=== PATIENT | male | born 1950 | race African-American/Black ===

== ENCOUNTER 2018-11-21 19:29 | Inpatient (IN) ==
[2018-11-21 22:31] LABS: Basophils % 0.1 % (0.0-0.8); Eosinophils # 0.1 10*3/uL (0.0-0.87); Eosinophils % 1.3 % (0.00-10.9); Immature Granulocytes % 0.5 %; Immature Granulocytes Absolute 0.04 #; Lymphocytes % 27.4 % (21.2-54.2); Mean Corpuscular HGB Conc 29.3 GM/DL (32-36); Mean Corpuscular Volume 75.9 FL (87-102); Mean Platelet Volume 10.6 FL (9.6-12.0); Monocytes % 6.7 % (1.7-12.7); Platelet Count 273 T/CUMM (130-400); Red Cell Distribution Width 17.1 % (9.3-17.3); White Blood Count 7.5 T/CUMM (4-12)
[2018-11-21 22:33] LABS: Hematocrit 16.7 VOL% (42.0-52.0); Hemoglobin 4.9 GM/DL (14.0-18.0)
[2018-11-21 22:37] LABS: PT Patient Result 10.6 SECS (9.6-12.2)
[2018-11-21 22:51] LABS: Alanine Aminotransferase 15 U/L (16-61); Alkaline Phosphatase 70 U/L (45-117); Aspartate Amino Transferase 9 U/L (0-37); Bilirubin,Total < 0.39 MG/DL (0.2-1.0); Blood Urea Nitrogen 25 MG/DL (7-18); Calcium 8.4 MG/DL (8.5-10.1); Estimated Glom Filtration Rate 79 ML/MIN; Glucose 308 MG/DL (74-106); Osmolality,Calculated 296.3 MOS/KG (273-304); Total Protein 6.7 G/DL (6.4-8.3)
[2018-11-21] MEDS ORDERED: hydrALAZINE 20 MG/1 ML VIAL IV STA (23:01)
[2018-11-21] MEDS ORDERED: PANTOPRAZOLE INJ 80 MG in SODIUM CHLORIDE 0.9% 100 ML IV ONE (23:01)
[2018-11-21] MEDS ORDERED: ACETAMINOPHEN 325 MG TABLET PO PRN (23:11)
[2018-11-21] MEDS ORDERED: BISACODYL 5 MG TABLET PO PRN (23:11)
[2018-11-21] MEDS ORDERED: guaiFENesin/DM ER 600-30 MG TABLET PO PRN (23:11)
[2018-11-21] MEDS ORDERED: NICOTINE 21 MG/24 HR PATCH TRANSDERM PRN (23:11)
[2018-11-21] MEDS ORDERED: ONDANSETRON 4 MG/2 ML VIAL IV PRN (23:11)
[2018-11-21] MEDS ORDERED: MORPHINE 4 MG/1 ML VIAL IV PRN (23:11)
[2018-11-21] MEDS ORDERED: diphenhydrAMINE CAP 25 MG CAPSULE PO PRN (23:11)
[2018-11-21] MEDS ORDERED: traZODone 50 MG TABLET PO PRN (23:11)
[2018-11-21] MEDS ORDERED: SODIUM CHLORIDE 0.9% 1,000 ML IV PRN (23:11)
[2018-11-21 23:40] LABS: Risk Ratio 4.52; Thyroid Stimulating Hormone 2.71 uIU/ml (0.358-3.74); VLDL CHOLESTEROL 29.6 MG/DL
[2018-11-21 23:43] LABS: % Iron Saturation 3.1 % (18-50); Ferritin 4.8 ng/ml (26-388)
[2018-11-21 23:47] LABS: Folate 15.4 NG/ML (5.4-24.0)
[2018-11-21] MEDS: SODIUM CHLORIDE 0.9% 1,000 ML IV SCH (23:47)
[2018-11-22] MEDS ORDERED: PNEUMOCOCCAL VACCINE (13 VALENT) 0.5 ML SYRINGE IM ONE (00:12)
[2018-11-22] MEDS ORDERED: GLUCAGON 1 MG VIAL IM PRN ×2 (00:27→13:25)
[2018-11-22] MEDS ORDERED: DEXTROSE 50% 25 GM/50 ML VIAL IV PRN (00:27)
[2018-11-22] MEDS: PANTOPRAZOLE INJ 200 MG in SODIUM CHLORIDE 0.9% 250 ML IV SCH (01:41)
[2018-11-22 04:36] LABS: Apearance,Urine Slightly Hazy (Clear); Bacteria,Urine Occasional /HPF (Few); Bilirubin,Urine Negative (Negative); Blood, Urine Negative (Negative); Glucose,Urine (UA) >=500 mg/dL (Negative); Hyaline Casts,Urine 1 /LPF (0-3); Ketones,Urine Negative (Negative); Mucus,Urine Few /LPF (Occasional); Nitrite,Urine Negative (Negative); Protein,Urine Negative; RBC,Urine <1 /HPF (0-4); Squamous Epithelial Cell,Urine Occasional /HPF (0-10); Urine Color Yellow (Yellow); Urine Specific Gravity 1.022 (1.001-1.035); Urine Urobilinogen < 2.0 EU/DL (0.2-1.0); WBC,Urine 10 /HPF (0-6)
[2018-11-22] MEDS ORDERED: hydrALAZINE 20 MG/1 ML VIAL IV ONE (05:16)
[2018-11-22 09:05] LABS: Basophils % 0.2 % (0.0-0.8); Eosinophils # 0.2 10*3/uL (0.0-0.87); Eosinophils % 2.4 % (0.00-10.9); Hematocrit 19.7 VOL% (42.0-52.0); Immature Granulocytes % 0.5 %; Immature Granulocytes Absolute 0.04 #; Lymphocytes # 3.1 10*3/uL (1.4-4.0); Lymphocytes % 36.3 % (21.2-54.2); Mean Corpuscular HGB Conc 31.5 GM/DL (32-36); Mean Corpuscular Volume 77.9 FL (87-102); Mean Platelet Volume 10.7 FL (9.6-12.0); Monocytes % 7.7 % (1.7-12.7); Neutrophils % 52.9 % (38.7-73.9); Platelet Count 239 T/CUMM (130-400); Red Blood Count 2.53 MC/CUMM (3.8-5.5); Red Cell Distribution Width 17.9 % (9.3-17.3); White Blood Count 8.4 T/CUMM (4-12)
[2018-11-22 09:07] LABS: Hemoglobin 6.2 GM/DL (14.0-18.0)
[2018-11-22 09:35] LABS: Albumin 2.8 G/DL (3.4-5.0); Bilirubin,Total 0.5 MG/DL (0.2-1.0); Calcium 7.8 MG/DL (8.5-10.1); Osmolality,Calculated 286.1 MOS/KG (273-304)
[2018-11-22] MEDS ORDERED: FUROSEMIDE 20 MG/2 ML VIAL IV ONE (10:14)
[2018-11-22] MEDS ORDERED: SODIUM CHLORIDE 0.9% 1,000 ML IV PRN (10:15)
[2018-11-22] MEDS ORDERED: ALBUTEROL/IPRATROPIUM 3 ML NEB RESP TX PRN (10:27)
[2018-11-22] MEDS ORDERED: DEXTROSE 10% 250 ML BAG IV PRN (13:25)
[2018-11-22 14:01] LABS: Hematocrit 24.4 VOL% (42.0-52.0)
[2018-11-22 14:06] LABS: Hemoglobin 7.7 GM/DL (14.0-18.0)
[2018-11-22] MEDS: SODIUM CHLORIDE 0.9% 1,000 ML IV SCH (15:34)
[2018-11-22] MEDS: hydrALAZINE 25 MG TABLET PO SCH ×2 (16:36→20:15)
[2018-11-22] MEDS: INSULIN LISPRO 100 UNIT/ML SUBCUT SCH ×2 (16:45→20:49)
[2018-11-22] MEDS ORDERED: hydrALAZINE 20 MG/1 ML VIAL IV PRN (23:31)
[2018-11-22] MEDS ORDERED: cloNIDine 0.1 MG TABLET PO ONE (23:31)
[2018-11-23] MEDS: PANTOPRAZOLE INJ 200 MG in SODIUM CHLORIDE 0.9% 250 ML IV SCH (01:07)
[2018-11-23] MEDS: SODIUM CHLORIDE 0.9% 1,000 ML IV SCH ×2 (04:57→21:20)
[2018-11-23] MEDS: INSULIN LISPRO 100 UNIT/ML SUBCUT SCH ×5 (07:29→21:20)
[2018-11-23 08:43] LABS: Basophils % 0.2 % (0.0-0.8); Eosinophils # 0.2 10*3/uL (0.0-0.87); Eosinophils % 4.2 % (0.00-10.9); Hematocrit 19.3 VOL% (42.0-52.0); Immature Granulocytes % 0.4 %; Immature Granulocytes Absolute 0.02 #; Lymphocytes # 2.3 10*3/uL (1.4-4.0); Lymphocytes % 43.6 % (21.2-54.2); Mean Corpuscular HGB Conc 31.1 GM/DL (32-36); Mean Corpuscular Volume 79.8 FL (87-102); Mean Platelet Volume 10.4 FL (9.6-12.0); Monocytes % 7.5 % (1.7-12.7); Neutrophils % 44.1 % (38.7-73.9); Platelet Count 203 T/CUMM (130-400); Red Blood Count 2.42 MC/CUMM (3.8-5.5); Red Cell Distribution Width 17.5 % (9.3-17.3); White Blood Count 5.3 T/CUMM (4-12)
[2018-11-23] MEDS: ATORVASTATIN 80 MG TABLET PO SCH (08:46)
[2018-11-23] MEDS: PANTOPRAZOLE 40 MG VIAL IV SCH ×2 (08:46→20:37)
[2018-11-23] MEDS: hydrALAZINE 25 MG TABLET PO SCH ×4 (08:46→20:35)
[2018-11-23] MEDS ORDERED: SODIUM CHLORIDE 0.9% 1,000 ML IV PRN ×2 (09:05→16:17)
[2018-11-23 09:18] LABS: Albumin 2.3 G/DL (3.4-5.0); Bilirubin,Total 0.4 MG/DL (0.2-1.0); Calcium 7.1 MG/DL (8.5-10.1); Osmolality,Calculated 288.6 MOS/KG (273-304); Total Protein 5.2 G/DL (6.4-8.3)
[2018-11-23] MEDS: POTASSIUM CHLORIDE 20 MEQ TABLET PO PRN ×3 (09:51→14:18)
[2018-11-23] MEDS ORDERED: CALCIUM GLUCONATE 1,000 MG in SODIUM CHLORIDE 0.9% 100 ML IV ONE (13:00)
[2018-11-23 20:28] LABS: Hematocrit 29.4 VOL% (42.0-52.0)
[2018-11-23 20:30] LABS: Hemoglobin 9.4 GM/DL (14.0-18.0)
[2018-11-24] MEDS: PANTOPRAZOLE INJ 200 MG in SODIUM CHLORIDE 0.9% 250 ML IV SCH (01:44)
[2018-11-24 05:45] LABS: Albumin 2.8 G/DL (3.4-5.0); Total Protein 6.3 G/DL (6.4-8.3)
[2018-11-24 05:48] LABS: Basophils % 0.3 % (0.0-0.8); Eosinophils # 0.3 10*3/uL (0.0-0.87); Eosinophils % 4.9 % (0.00-10.9); Hemoglobin 9.6 GM/DL (14.0-18.0); Immature Granulocytes % 0.3 %; Immature Granulocytes Absolute 0.02 #; Lymphocytes # 2.2 10*3/uL (1.4-4.0); Lymphocytes % 30.9 % (21.2-54.2); Mean Corpuscular Volume 81.5 FL (87-102); Mean Platelet Volume 10.8 FL (9.6-12.0); Monocytes % 8.6 % (1.7-12.7); Platelet Count 221 T/CUMM (130-400); Red Blood Count 3.68 MC/CUMM (3.8-5.5); Red Cell Distribution Width 17.2 % (9.3-17.3)
[2018-11-24] MEDS ORDERED: LACTATED RINGERS 1,000 ML IV SCH (08:00)
[2018-11-24] MEDS: INSULIN LISPRO 100 UNIT/ML SUBCUT SCH ×4 (08:08→21:06)
[2018-11-24] MEDS: PANTOPRAZOLE 40 MG VIAL IV SCH ×2 (08:32→21:05)
[2018-11-24] MEDS ORDERED: propofoL 200 MG/20 ML VIAL IV ONE (10:00)
[2018-11-24] MEDS ORDERED: LIDOCAINE 100 MG/5 ML SYRINGE ONE (10:00)
[2018-11-24] MEDS: hydrALAZINE 25 MG TABLET PO SCH ×3 (14:14→21:06)
[2018-11-24] MEDS: ATORVASTATIN 80 MG TABLET PO SCH (14:14)
[2018-11-24 14:19] LABS: Hematocrit 29.4 VOL% (42.0-52.0); Hemoglobin 9.5 GM/DL (14.0-18.0)
[2018-11-24 15:34] LABS: Cancer Antigen 19-9 2.5 U/ML (0-37)
[2018-11-24] MEDS: SODIUM CHLORIDE 0.9% 1,000 ML IV SCH ×2 (19:05→21:05)
[2018-11-25 07:36] LABS: Basophils % 0.4 % (0.0-0.8); Eosinophils # 0.3 10*3/uL (0.0-0.87); Eosinophils % 5.9 % (0.00-10.9); Hematocrit 33.6 VOL% (42.0-52.0); Hemoglobin 10.3 GM/DL (14.0-18.0); Immature Granulocytes % 0.6 %; Immature Granulocytes Absolute 0.03 #; Lymphocytes # 1.8 10*3/uL (1.4-4.0); Lymphocytes % 33.6 % (21.2-54.2); Mean Corpuscular HGB Conc 30.7 GM/DL (32-36); Mean Corpuscular Volume 84.8 FL (87-102); Mean Platelet Volume 10.7 FL (9.6-12.0); Neutrophils % 50.5 % (38.7-73.9); Platelet Count 184 T/CUMM (130-400); Red Blood Count 3.96 MC/CUMM (3.8-5.5); Red Cell Distribution Width 17.7 % (9.3-17.3); White Blood Count 5.5 T/CUMM (4-12)
[2018-11-25 07:42] LABS: Calcium 8.1 MG/DL (8.5-10.1); Osmolality,Calculated 282.1 MOS/KG (273-304)
[2018-11-25] MEDS: INSULIN LISPRO 100 UNIT/ML SUBCUT SCH ×4 (09:19→23:12)
[2018-11-25] MEDS: hydrALAZINE 25 MG TABLET PO SCH ×4 (09:20→22:06)
[2018-11-25] MEDS: PANTOPRAZOLE 40 MG VIAL IV SCH ×2 (09:20→23:15)
[2018-11-25] MEDS: ATORVASTATIN 80 MG TABLET PO SCH (09:20)
[2018-11-25] MEDS: SODIUM CHLORIDE 0.9% 1,000 ML IV SCH (11:35)
[2018-11-26] MEDS: SODIUM CHLORIDE 0.9% 1,000 ML IV SCH (05:31)
[2018-11-26 06:34] LABS: Basophils % 0.3 % (0.0-0.8); Eosinophils # 0.3 10*3/uL (0.0-0.87); Eosinophils % 4.9 % (0.00-10.9); Hematocrit 30.9 VOL% (42.0-52.0); Hemoglobin 9.7 GM/DL (14.0-18.0); Immature Granulocytes % 0.3 %; Immature Granulocytes Absolute 0.02 #; Lymphocytes # 2.4 10*3/uL (1.4-4.0); Mean Corpuscular HGB Conc 31.4 GM/DL (32-36); Mean Corpuscular Volume 81.5 FL (87-102); Mean Platelet Volume 10.8 FL (9.6-12.0); Monocytes % 8.9 % (1.7-12.7); Neutrophils % 48.6 % (38.7-73.9); Platelet Count 229 T/CUMM (130-400); Red Blood Count 3.79 MC/CUMM (3.8-5.5); White Blood Count 6.5 T/CUMM (4-12)
[2018-11-26 06:54] LABS: Osmolality,Calculated 284.3 MOS/KG (273-304)
[2018-11-26] MEDS: PANTOPRAZOLE 40 MG VIAL IV SCH (09:27)
[2018-11-26] MEDS: INSULIN LISPRO 100 UNIT/ML SUBCUT SCH ×2 (09:28→13:02)
[2018-11-26] MEDS: ATORVASTATIN 80 MG TABLET PO SCH (09:28)
[2018-11-26] MEDS: hydrALAZINE 25 MG TABLET PO SCH ×2 (09:28→14:15)
[2018-11-26 11:36] VITALS: BP 127/62
== END 2018-11-26 15:18 | disposition home or self-care (01) | DRG 378 ==
LOC: N.ED 19:29 → SUATTDRO 23:11 → N.EDINP 23:33 → N.ICU 23:37 → N.5E 11-23 16:53
PROVIDERS: ADMIT Internal Medicine Nephrology; ATTEND Internal Medicine